=== PATIENT | female | born 1975 | race Native Hawaiian/Other Pacific Islander ===

== ENCOUNTER 2017-02-27 18:30 | Emergency (ER) | payer BC, OTHER ==
[~2017-02-27] VITALS: Ht 162.6 cm; Wt 64.3 kg
[2017-02-27 18:37] VITALS: BP 123/82; PULSE 90; RESP 20; TEMP 98.2; O2SAT 100
[2017-02-27 19:00] VITALS: BP 126/71; PULSE 87; RESP 18; TEMP 98.8; O2SAT 97
[2017-02-27] MEDS ORDERED: VITA100052 PO (19:20)
[2017-02-27] MEDS ORDERED: SODIUM CHLOR 0.9% 1000 ML INJ 1,000 ML IV SCH (19:22)
[2017-02-27] MEDS ORDERED: MORPHINE SULFATE 4 MG/ML INJ IV PUSH ONE (19:30)
[2017-02-27] MEDS ORDERED: ONDANSETRON HCL 4 MG/2 ML VIAL IVP ONE (19:30)
[2017-02-27] MEDS ORDERED: SODIUM CHLORIDE 0.9% FLUSH 10 ML FLUSH IV FLUSH PRN (19:30)
[2017-02-27 19:49] VITALS: O2SAT 98
[2017-02-27 19:56] LABS: AUTOMATED NEUTROPHIL # 9.1 TH/MM3 (1.8-7.7); BASOPHIL # 0.1 TH/MM3 (0-0.2); BASOPHIL % 1.1 % (0.0-2.0); EOSINOPHIL % 0.1 % (0.0-4.0); HEMATOCRIT 40.5 % (35.0-46.0); LYMPH % 6.1 % (9.0-44.0); LYMPHOCYTE # 0.6 TH/MM3 (1.0-4.8); MEAN CELL VOLUME 81.9 FL (80.0-100.0); MEAN CORPUSCULAR HEMOGLOBIN 27.3 PG (27.0-34.0); MEAN CORPUSCULAR HGB CONC 33.3 % (32.0-36.0); MONO % 3.8 % (0.0-8.0); NEUT % 88.9 % (16.0-70.0); PLATELET COUNT 288 TH/MM3 (150-450); RED BLOOD COUNT 4.94 MIL/MM3 (4.00-5.30); RED CELL DISTRIBUTION WIDTH 15.2 % (11.6-17.2); WHITE BLOOD COUNT 10.2 TH/MM3 (4.0-11.0)
[2017-02-27 19:57] LABS: BLOOD, URINE TRACE (NEG); GLUCOSE,URINE NEG (NEG); KETONE, URINE 15 mg/dL (NEG); NITRITE,URINE NEG (NEG); PH, URINE 5.5 (5.0-8.5)
[2017-02-27 20:00] LABS: HEMO FLAGS DIFF FINAL
[2017-02-27 20:05] LABS: CHLORIDE 104 MEQ/L (98-107); POTASSIUM 3.4 MEQ/L (3.5-5.1); SODIUM (NA) 138 MEQ/L (136-145)
[2017-02-27 20:06] LABS: MUCUS URINE OCC /lpf (OCC); URINE COLOR YELLOW (YELLW/STRAW)
[2017-02-27 20:08] LABS: RBC, URINE 0-3 /hpf (0-3); SQUAMOUS EPITHELIAL CELL URINE 0-5 /hpf (0-5)
[2017-02-27 20:09] LABS: ANION GAP 11 MEQ/L (5-15); BACTERIA, URINE FEW /hpf; BICARBONATE 22.8 MEQ/L (21.0-32.0); BLOOD UREA NITROGEN 22 MG/DL (7-18); COMMENT (UR) CULT NOT INDICATED; CULTURE IF INDICATED CULT NOT INDICATED; WBC, URINE 0-2 /hpf (0-5)
[2017-02-27 20:11] LABS: ALT (GPT) 39 U/L (10-53); AST (GOT) 22 U/L (15-37)
[2017-02-27 20:12] LABS: GLOMERULAR FILTRATION RATE 79 ML/MIN (>89)
[2017-02-27 20:13] LABS: TOTAL BILIRUBIN ADULT 0.5 MG/DL (0.2-1.0)
[2017-02-27 20:14] LABS: ALKALINE PHOSPHATASE 54 U/L (45-117)
--- NOTE | 2017-02-27 20:14 | PD ---
HPI Chief Complaint: Abdominal Pain Time Seen by Provider: 19:22 Travel History International Travel<30 days: No Contact w/Intl Traveler<30days: No Traveled to known affect area: No History of Present Illness HPI 41-year-old female presents to the emergency department for complaint of one day of diarrhea and intermittent abdominal cramping and nausea. Patient states that symptoms began early this morning. Patient concerned that she may have eaten some bad food while at work. Patient states symptoms began gradually as diarrhea and progressive worsen. Patient denies any fever although has experienced subjective chills. No hematemesis no coffee-ground emesis and no melanoma hematochezia. Patient denies any abdominal pain at this time. Patient had no dysuria frequency urgency hematuria or abnormal vaginal bleeding. Patient's last period was one month ago and normal for her. Patient denies any chronic medical illnesses. Patient has had 3 previous C-sections. Patient denies taking any prescription medications. PFSH Past Medical History Narrative Medical Negative past medical history no tobacco use nursing notes reviewed Medical History: Denies Significant Hx Tetanus Vaccination: Never Vaccinated Influenza Vaccination: No ?: Not LMP: 02/15/2017 Past Surgical History Section: Yes Gynecologic Surgery: Yes () Social History Alcohol Use: No Tobacco Use: No Substance Use: No Allergies-Medications (Allergen,Severity, Reaction): Coded Allergies: No Known Allergies (Unverified , 02/27/17) Reported Meds & Prescriptions Reported Meds & Active Scripts Active Zofran Odt (Ondansetron Odt) 4 Mg Tab 4 Mg SL Q6HR PRN Reported Vitamin D High Potency (Cholecalciferol) 1,000 Unit Cap 5,000 Units PO DAILY Review of Systems Except as stated in HPI: all other systems reviewed are Neg Physical Exam Narrative GENERAL: Well-developed well-nourished female in no acute distress no respiratory distress; triage vital signs and normal range SKIN: Warm and dry. HEAD: Normocephalic. EYES: No scleral icterus. No injection or drainage. NECK: Supple, trachea midline. No JVD or lymphadenopathy. CARDIOVASCULAR: Regular rate and rhythm without murmurs, gallops, or rubs. RESPIRATORY: Breath sounds equal bilaterally. No accessory muscle use. GASTROINTESTINAL: Abdomen soft, non-tender, nondistended. MUSCULOSKELETAL: No cyanosis, or edema. BACK: Nontender without obvious deformity. No CVA tenderness. Data Data Last Documented VS Vital Signs Date Time Temp Pulse Resp B/P Pulse Ox O2 Delivery O2 Flow Rate FiO2 02/27/17 20:45 89 17 119/60 100 Room Air 02/27/17 19:49 2 02/27/17 19:00 98.8 Orders Complete Blood Count With Diff (02/27/17 19:22) Comprehensive Metabolic Panel (02/27/17 19:22) Lipase (02/27/17 19:22) Urinalysis - C+S If Indicated (02/27/17 19:22) Iv Access Insert/Monitor (02/27/17 19:22) Ecg Monitoring (02/27/17:22) Oximetry (02/27/17:22) Ondansetron Inj (Zofran Inj) (02/27/17 19:30) Sodium Chlor 0.9% 1000 Ml Inj (Ns 1000 M (02/27/17 19:22) Sodium Chloride 0.9% Flush (Ns Flush) (02/27/17 19:30) Ed Urine Pregnancytest Poc (02/27/17 19:22) Morphine Inj (Morphine Inj) (02/27/17 19:30) Ketorolac Inj (Toradol Inj) (02/27/17 21:15) Sodium Chlorid 0.9% 500 Ml Inj (Ns 500 M (02/27/17 21:15) Labs Laboratory Tests Test 02/27/17 19:45 White Blood Count 10.2 TH/MM3 Red Blood Count 4.94 MIL/MM3 Hemoglobin 13.5 GM/DL Hematocrit 40.5 % Mean Corpuscular Volume 81.9 FL Mean Corpuscular Hemoglobin 27.3 PG Mean Corpuscular Hemoglobin 33.3 % Concent Red Cell Distribution Width 15.2 % Platelet Count 288 TH/MM3 Mean Platelet Volume 9.6 FL Neutrophils (%) (Auto) 88.9 % Lymphocytes (%) (Auto) 6.1 % Monocytes (%) (Auto) 3.8 % Eosinophils (%) (Auto) 0.1 % Basophils (%) (Auto) 1.1 % Neutrophils # (Auto) 9.1 TH/MM3 Lymphocytes # (Auto) 0.6 TH/MM3 Monocytes # (Auto) 0.4 TH/MM3 Eosinophils # (Auto) 0.0 TH/MM3 Basophils # (Auto) 0.1 TH/MM3 CBC Comment DIFF FINAL Differential Comment Urine Color YELLOW Urine Turbidity CLEAR Urine pH 5.5 Urine Specific [place] 1.023 Urine Protein NEG mg/dL Urine Glucose (UA) NEG mg/dL Urine Ketones 15 mg/dL Urine Occult Blood TRACE Urine Nitrite NEG Urine Bilirubin NEG Urine Leukocyte Esterase NEG Urine RBC 0-3 /hpf Urine WBC 0-2 /hpf Urine Squamous Epithelial 0-5 /hpf Cells Urine Bacteria FEW /hpf Urine Mucus OCC /lpf Microscopic Urinalysis Comment CULT NOT INDICATED Sodium Level 138 MEQ/L Potassium Level 3.4 MEQ/L Chloride Level 104 MEQ/L Carbon Dioxide Level 22.8 MEQ/L Anion Gap 11 MEQ/L Blood Urea Nitrogen 22 MG/DL Creatinine 0.81 MG/DL Estimat Glomerular Filtration 79 ML/MIN Rate Random Glucose 97 MG/DL Calcium Level 9.4 MG/DL Total Bilirubin 0.5 MG/DL Aspartate Amino Transf 22 U/L (AST/SGOT) Alanine Aminotransferase 39 U/L (ALT/SGPT) Alkaline Phosphatase 54 U/L Total Protein 8.3 GM/DL Albumin 4.0 GM/DL Lipase 147 U/L MDM Medical Decision Making Medical Screen Exam Complete: Yes Emergency Medical Condition: Yes Medical Record Reviewed: Yes Interpretation(s) CBC & BMP Diagram 02/27/17 19:45 Vital Signs Date Time Temp Pulse Resp B/P Pulse Ox O2 Delivery O2 Flow Rate FiO2 02/27/17 20:45 89 17 119/60 100 Room Air 02/27/17 19:49 98 Nasal Cannula 2 02/27/17 19:00 98.8 87 18 126/71 97 Room Air 02/27/17 18:37 98.2 90 20 123/82 100 Urinalysis: Trace blood otherwise size and normal range Point of care hCG: Negative Differential Diagnosis Abdominal pain, gastroenteritis, dehydration, electrolyte disturbance, biliary colic, gastritis, peptic ulcer disease, pancreatitis, atypical appendicitis, renal colic Narrative Course IV access obtained specimens collected and sent for resulting patient administered morphine 2 mg IV Zofran 4 mg IV and bolus of normal saline 1 L At 13/10/15 patient is clinically improved abdomen is soft nontender no guarding no rebound no point tenderness. Patient states nausea has improved. Patient will be given trial of oral hydration. At 2138 patient is clinically improved and able tolerate oral hydration. Diagnosis Primary Impression: Gastroenteritis Additional Impression: Dehydration Referrals: Primary Care Physician call for appointment Patient Instructions: General Instructions Departure Forms: Tests/Procedures, Work Release Special Instructions: no work x 1 day Additional Instructions: Follow clear liquid diet for next 12-24 hours; advance diet as tolerated to bland then regular diet Follow-up with primary care provider Take acetaminophen/Tylenol for minor pain or fever 100.4F or greater No work times one day Follow-up with primary care provider call office in a.m. to schedule follow-up appointment Return to the emergency department for any concerns or change in condition Med/Other Pt SpecificInfo: Prescription(s) given Scripts Ondansetron Odt (Zofran Odt)4 Mg Tab4 Mg SL Q6HR PRN (Nausea/Vomiting) #10 TAB Ref 0 Prov:Ashley Dill MD 02/27/17 Disposition: 01 DISCHARGE HOME Condition: Stable Ashley Dill MD Feb 27, 2017 20:14
[2017-02-27 20:45] VITALS: BP 119/60; PULSE 89; RESP 17; O2SAT 100
[2017-02-27] MEDS ORDERED: KETOROLAC TROMETHAMINE 30 MG/ML (IVP) VIAL IV PUSH ONE (21:15)
[2017-02-27] MEDS ORDERED: SODIUM CHLORID 0.9% 500 ML INJ 500 ML IV ONE (21:15)
[2017-02-27] MEDS ORDERED: ZOFR4TAB3 SL (21:36)
[2017-02-27 22:16] VITALS: RESP 17
[2017-02-27 22:32] VITALS: BP 101/59
== END 2017-02-27 22:34 | disposition home or self-care (01) ==
LOC: PHED 18:30
DX: K52.9 Noninfective gastroenteritis and colitis, unspecified (principal); E86.0 Dehydration
CPT/HCPCS: 80053; 81001; 83690; 84703; 85025; 96361; 96374; 96375; 99284; J1885; J2270; J2405; J7030; J7040